=== PATIENT | female | born 1985 | race American Indian/Alaskan Native ===

== ENCOUNTER 2018-05-20 22:52 | Outpatient (CLI) | payer OTHER ==
[2018-05-20] MEDS ORDERED: LABETALOL HCL100 MG PO (23:30)
[2018-05-20] MEDS ORDERED: PRENATAL TABLE1 EAC1 (23:32)
[2018-05-20] MEDS ORDERED: PRENATAL TABLE1 EAC1 PO (23:32)
== END 2018-05-21 10:09 | disposition home or self-care (01) ==
LOC: OBS/DEL 22:52
DX: O23.592 Infection of other part of genital tract in pregnancy, second trimester (principal); N76.0 Acute vaginitis; O16.2 Unspecified maternal hypertension, second trimester; Z34.02 Encounter for supervision of normal first pregnancy, second trimester

== ENCOUNTER 2018-08-23 14:21 | Outpatient (CLI) | payer OTHER ==
[~2018-08-23 14:21] MED LIST: LABETALOL HCL100 MG PO; PRENATAL TABLE1 EAC1; PRENATAL TABLE1 EAC1 PO
== END 2018-08-24 11:33 | disposition home or self-care (01) ==
LOC: OBS/DEL 14:21
DX: O23.593 Infection of other part of genital tract in pregnancy, third trimester (principal); Z34.03 Encounter for supervision of normal first pregnancy, third trimester; N76.0 Acute vaginitis

== ENCOUNTER 2018-08-26 01:10 | Inpatient (IN) | payer OTHER ==
[~2018-08-26] VITALS: Ht 160 cm; Wt 73.9 kg
[2018-08-26] MEDS ORDERED: ZYRTEC10 M3 PO (05:30)
[2018-08-26] MEDS ORDERED: ALDOMET250 MG PO (05:31)
== END 2018-08-29 12:11 | disposition home or self-care (01) | DRG 807 ==
LOC: OBS/DEL 01:10 → LDR 03:10 → OB/GYN 03:10
PROVIDERS: ADMIT Obstetrics & Gynecology
PROC: 10E0XZZ Delivery of Products of Conception, External Approach (ICD-10-PCS; principal; 2018-08-26)
PROC: BY4FZZZ Ultrasonography of Third Trimester, Single Fetus (ICD-10-PCS; 2018-08-26)
PROC: 4A1HXCZ Monitoring of Products of Conception, Cardiac Rate, External Approach (ICD-10-PCS; 2018-08-26)
DX: O42.913 Preterm premature rupture of membranes, unspecified as to length of time between rupture and onset of labor, third trimester (principal); Z37.0 Single live birth; Z3A.33 33 weeks gestation of pregnancy